=== PATIENT | female | born 1955 ===

== ENCOUNTER 2021-04-25 10:45 | Outpatient (CLI) | payer MEDICARE, MEDICAID ==
[2021-04-25 17:28] LABS: SARS-CoV-2 PCR by NAA Not Detected (NotDetected)
== END 2021-04-25 10:46 | disposition home or self-care (01) ==
LOC: LABBT 10:45
PROVIDERS: ATTEND Internal Medicine Gastroenterology
DX: Z01.812 Encounter for preprocedural laboratory examination (principal); Z20.822 Contact with and (suspected) exposure to COVID-19
CPT/HCPCS: U0003; U0005

== ENCOUNTER 2021-04-30 10:13 | Day surgery (SDC) | payer MEDICARE, MEDICAID ==
[2021-04-29 13:42] VITALS: BMI 24.0
[2021-04-30] MEDS ORDERED: PROPOFOL 200 MG/20 ML VIAL ONE (12:44)
== END 2021-04-30 14:02 | disposition home or self-care (01) ==
LOC: SDC 10:13
PROVIDERS: ATTEND Internal Medicine Gastroenterology
PROC: 0DJD8ZZ Inspection of Lower Intestinal Tract, Via Natural or Artificial Opening Endoscopic (ICD-10-PCS; principal; 2021-04-30)
DX: Z12.11 Encounter for screening for malignant neoplasm of colon (principal); K57.30 Diverticulosis of large intestine without perforation or abscess without bleeding; K64.9 Unspecified hemorrhoids; I10 Essential (primary) hypertension; E78.5 Hyperlipidemia, unspecified; M06.9 Rheumatoid arthritis, unspecified; Z90.49 Acquired absence of other specified parts of digestive tract; Z96.698 Presence of other orthopedic joint implants; Z87.42 Personal history of other diseases of the female genital tract; Z86.010 Personal history of colon polyps; Z79.899 Other long term (current) drug therapy
CPT/HCPCS: J2704